=== PATIENT | male | born 1995 | race Caucasian/White ===

== ENCOUNTER 2018-07-07 10:09 | Emergency (ER) | payer OTHER | END 2018-07-07 10:57 | disposition home or self-care (01) | LOC: M ED 10:09 | DX: M62.830 Muscle spasm of back (principal) | CPT/HCPCS: 99282 ==

== ENCOUNTER 2019-12-08 09:20 | Day surgery (SDC) | payer OTHER, SELFPAY ==
[~2019-12-08] VITALS: Ht 175.3 cm; Wt 87.7 kg
[2019-12-08] VITALS (8 sets, daily range): BP systolic 130–154; BP diastolic 65–92
[~2019-12-08 09:20] MED LIST: IBUP-1022 PO; ROBA500T PO
[2019-12-08] MEDS ORDERED: LR 1,000 ML IV SCH ×2 (10:08→14:15)
[2019-12-08] MEDS ORDERED: MORPHINE 2 MG/ML 1ML VIAL (J2270) IV PRN (10:15)
[2019-12-08] MEDS ORDERED: ONDANSETRON 4MG/2ML VIAL IV PRN ×2 (10:15→14:15)
[2019-12-08] MEDS ORDERED: ACETAMINOPHEN TAB 650MG DOSE (2X325MG) PO PRN (10:15)
[2019-12-08] MEDS ORDERED: PERCOCET 5MG/325MG TAB PO PRN ×2 (10:15→14:15)
--- NOTE | 2019-12-08 10:25 | HPEPDOC ---
General Surgery H&P Date of Admission December 08, 2019 Attending Physician: LUIS OSUNA MD History and Physical CHIEF COMPLAINT: abdominal pain HISTORY OF PRESENT ILLNESS: Patient is a healthy 24 M transferred from [facility] ED with complaints of overnight history of abdominal pain. This started about 9 pm last night. Pain is located over the right side of the abdomen, epigastric and right upper quadrant area right lower quadrant area. He describes this as initially vague but that about 1 AM started becoming sharp and constant. He tried TUMS without effect. Denies nausea, vomiting, diarrhea, fevers or chills. Reports sharp, almost constant pain. Denies any significant outside travel or sick contacts. He denies any cough or colds, shortness of breath. He reports roughly about 2 years ago had almost similar symptoms and was in the emergency department was told he had some gastritis. ALLERGIES: Please see below. HOME MEDICATIONS: Please see below. PAST MEDICAL HISTORY: 1. Gastroesophageal Reflux Disease PAST SURGICAL HISTORY: 1 left knee arthroscopy PERSONAL/SOCIAL HISTORY: [Denies smoking quit 2 yrs ago, occasional alcohol use, denies recreational drug use]. REVIEW OF SYSTEMS: GENERAL: [Denies chills, fatigue, fever, weight gain and weight loss]. HEENT: Denies vision problems, hearing problems. NECK: [Denies any neck pain]. CARDIOVASCULAR: [Denies chest pain and palpitations]. MUSCULOSKELETAL: Had left knee arthroscopy, reports occasional back pain. SKIN: [Denies rash]. NEUROLOGIC: [Denies headache, stroke and transient ischemic attack]. PSYCHIATRIC: [Denies anxiety and depression]. ENDOCRINE: [Denies thyroid disease]. No personal history for diabetes HEMATOLOGY/ONCOLOGY: [Denies any bleeding or clotting disorder]. HEART: [Denies any chest pains, palpitations, paroxysmal dyspnea, orthopnea]. PULMONARY: [Denies chronic cough, dyspnea and wheezing]. GASTROINTESTINAL: See HPI. GENITOURINARY: [Denies dysuria, frequency, hematuria and nocturia]. ENDOCRINE: [Denies polydipsia, polyphagia, polyuria, heat or cold intolerance]. INFECTIOUS: [Denies any recent upper respiratory tract infection, UTI, need for use of antibiotics]. NUTRITION: Reports fair to poor appetite since his symptoms began. PHYSICAL EXAMINATION: VITAL SIGNS: Please see below. GENERAL APPEARANCE: [Patient seen at bedside, appears mildly comfortable]. [Awake, alert, oriented]. HEENT: [Normocephalic, atraumatic. [place] palpebral conjunctivae. Anicteric sclera e. Lips moist]. CHEST: [No chest wall abnormalities. Normal respiratory motion/effort]. NECK: [Supple. No thyromegaly. No lymphadenopathies]. LUNGS: [Lung sounds are clear to auscultation bilaterally. No wheezing appreciated]. HEART: [No chest wall abnormalities. Heart rate and rhythm are regular with no murmurs]. ABDOMEN: Relatively flat abdomen, soft. Tender on palpation right just above the umbilicus also at the suprapubic area and right lower quadrant area with mild guarding. SKIN: [Warm, moist]. EXTREMITIES: [Extremities have no deformities. No edema identified]. NEUROLOGICAL: Awake, alert and oriented. ANCILLARIES: . LABORATORY DATA: Please see below. (done at [facility]) U/A normal CMP normal CBC: WBC 13.5 Hgb 16.8/Hct. 45.2 Plt 247 MICROBIOLOGY: Please see below. IMAGING: CT abdomen and pelvis (performed at [facility])\distended appendix up to 1.3 cms associated with the wall hperenhancement and peripheral fat stranding. No perforation, free air IMPRESSION AND PLAN: Acute Appendicitis with localized peritonitis Patient has been transferred to our care after presenting at [facility] with symptoms consistent with acute appendicitis as well as imaging done in the emergency room showing a dilated appendix with periapical initial fat stranding. He does have evidence for localized peritonitis. Patient has been given a dose of zosyn 3.375 gm/IV at about 7:38 am today. Will keep him on unasyn 3 gm IV while awaiting availability of the OR. I advised the patient need for surgery, details of the procedure (Laparoscopic appendectomy), risks and benefits. This includes risk for anesthesia, risks of bleeding, infection, subsequent abscess formation, injury to nearby bowels or blood vessels. Patient has consented to the procedure. Vital Signs BP 144/92 Temperature 90.9 Pulse rate 102 Respiratory rate 16 Pulse oximetry 96% at room air Home Medications Scheduled PRN Ibuprofen (Ibuprofen) 600 Mg Tab, 600 MG PO Q6H PRN for PAIN Methocarbamol (Robaxin) 500 Mg Tab, 2 TAB PO Q6H PRN for PAIN Allergies Coded Allergies: No Known Allergies (Unverified , 01/29/14) A-FIB/CHADSVASC A-FIB History Current/History of A-Fib/PAF?: No Current PO Anticoag Therapy: No LUIS OSUNA MD December 08, 2019 10:25
[2019-12-08] MEDS ORDERED: AMPICILLIN SOD/SULBACTAM SOD 3 GM in D5W MINI-BAG PLUS 100 ML IV SCH (11:00)
[2019-12-08] MEDS: PANTOPRAZOLE 40MG VIAL (C9113 PER 1) IV SCH (11:31)
[2019-12-08] MEDS ORDERED: ROCURONIUM BROMIDE 50 MG/5 ML VIAL As Ordered ONE (12:27)
[2019-12-08] MEDS ORDERED: fentaNYL 250 MCG/5 ML INJECTION (J3010) As Ordered ONE (12:27)
[2019-12-08] MEDS ORDERED: propofoL 200 MG/20 ML VIAL As Ordered ONE (12:27)
[2019-12-08] MEDS ORDERED: MIDAZOLAM INJ 2MG/2ML VIAL (J2250 PER 1MG) As Ordered ONE (12:27)
[2019-12-08] MEDS ORDERED: LIDOCAINE 2% 100MG/5ML SDV (FOR ANES.) As Ordered ONE (12:27)
[2019-12-08] MEDS ORDERED: LIDOCAINE 1% SDV 30ML VIAL As Ordered ONE (12:37)
[2019-12-08] MEDS ORDERED: BUPIVACAINE HCL 0.25% 30ML VIAL As Ordered ONE (12:37)
[2019-12-08] MEDS ORDERED: UNASYN 1.5 GM VIAL As Ordered ONE (12:40)
[2019-12-08] MEDS ORDERED: SUCCINYLCHOLINE 100 MG/5 ML SYRINGE (J0330) As Ordered ONE (13:18)
[2019-12-08] MEDS ORDERED: ONDANSETRON 4MG/2ML VIAL As Ordered ONE (13:33)
[2019-12-08] MEDS ORDERED: KETOROLAC 60 MG/2 ML VIAL As Ordered ONE (13:33)
[2019-12-08] MEDS ORDERED: dexameTHASONE 4 MG/ML 1ML VIAL (J1100 PER 1MG) As Ordered ONE ×2 (13:33→13:34)
[2019-12-08] MEDS ORDERED: METOCLOPRAMIDE INJ 10MG/2ML VIAL (J2765 PER 1) As Ordered ONE (13:34)
[2019-12-08] MEDS ORDERED: ACETAMINOPHEN 1000MG 100ML IV BTL (OFIRMEV) (J0131 PER 10MG) As Ordered ONE (13:35)
[2019-12-08] MEDS ORDERED: SUGAMMADEX SODIUM 500 MG/5 ML VIAL (BRIDION) As Ordered ONE (13:39)
--- NOTE | 2019-12-08 14:10 | ROOPDOC ---
[facility] Report Of Operation Report of Operation DATE OF PROCEDURE: 12/08/19 PREPROCEDURE DIAGNOSES: Acute Appendicitis. POSTPROCEDURE DIAGNOSES: Acute Appendicitis. PROCEDURE: Laparoscopic Appendectomy. SURGEON: Damon Marroquin MD [employer] SUPERVISOR: ANESTHESIA: General Anesthesia. ESTIMATED BLOOD LOSS: Approximately 20 mL. COMPLICATIONS: none. REMARKS: healthy 24 M with one day history of abdominal pain found to have enlarged and inflamed appendix on CT, WBC 13,000. PROCEDURE NOTE: inflamed and mildly enlarged appendix along its course, exudates covering appendix and mesoappendix, no perforation, no free fluid collection. Mildly thickened mesoappendix, healthy base. DESCRIPTION OF PROCEDURE: Patient has been given a dose of Unasyn 3 g IV perioperatively. Patient was brought to the operating room, placed supine on the table. Sequential compressi on device placed for DVT prophylaxis. General endotracheal anesthesia started. The abdomen prepped and draped in usual sterile fashion. After a surgical timeout, we began our surgery Entry into the abdomen done through an incision just above the umbilicus. Veress needle inserted on a controlled fashion. Intra-abdominal placement confirmed with saline drop technique. CO2 insufflation started to a pressure of 15 mmHg. Using the same incision a 5 mm optical port was placed under direct vision of laparoscope. Insertion site was inspected for injury and none was found. He was placed on a Trendelenburg position the right side tilted to about 30 to allow for better visualization of the appendix. A 5 mm port was placed under direct vision at the suprapubic area. The umbilical port was exchanged for an 8 mm port. Another 5 mm port was placed over the left lower quadrant area. Operative findings: Markedly inflamed and thickened appendix as well as the mesoappendix with exudates on the wall of the appendix is noted the patient is relatively healthy and thickened. There is some mild distention just distal to the base. No obvious perforation. Small amount of serous fluid at the right gutter noted. The appendix was located. The Surrounding bowels retracted away from the appendix. This was grasped to pull the base of the appendix into view. The mesoappendix was divided using Harmonic scalpel down to the base. The fibrous adhesion, attachments to the lateral wall of the cecum was likewise sharply divided The base still appears distended and thickened. The terminal ileum was slightly adhered to the pelvic sidewall which was likewise dissected to further bring the base of the appendix into view. Two PDS Endoloops were placed to ligate the appendix at its base then divided with a Harmonic Scalpel then the stump was cauterized. Stump appears healthy. Appendix was then delivered into an Endo Catch bag and retrieved through the umbilical port site. After re- insufflation the surgical site was inspected for hemostasis. Surrounding areas of the abdomen including the pelvis and perihepatic area were inspected for fluid collections or signs of injury. The abdomen was deflated. All ports removed. The umbilical fascial defect repaired with 0 Vicryl in a mattress fashion. All skin incisions closed with 4-0 Monocryl in a subcuticular fashion. Steri-Strips and gauze dressings in place. Patient was informed they awakened, extubated and brought to recovery room in stable condition. DAMON MARROQUIN MD December 08, 2019 14:10
[2019-12-08] MEDS ORDERED: fentaNYL 100 MCG/2 ML INJECTION (J3010) IV PRN (14:15)
[2019-12-08] MEDS ORDERED: METOCLOPRAMIDE INJ 10MG/2ML VIAL (J2765 PER 1) IV PRN (14:15)
[2019-12-08 16:21] LABS: BLOOD UREA NITROGEN 10 MG/DL (7-18); CALCIUM LEVEL 8.9 MG/DL (8.5-10.1); CARBON DIOXIDE LEVEL 26 MEQ/L (21-32); CHLORIDE LEVEL 105 MEQ/L (98-107); CREATININE FOR GFR 0.92 MG/DL (0.70-1.30); GLOMERULAR FILTRATION RATE > 60.0 (>60); GLUCOSE, FASTING 149 MG/DL (70-100); POTASSIUM SERUM 3.8 MEQ/L (3.5-5.1); SODIUM LEVEL 137 MEQ/L (136-145)
[2019-12-08] MEDS: AMPICILLIN SOD/SULBACTAM SOD 3 GM in D5W MINI-BAG PLUS 100 ML IV SCH (19:29)
[2019-12-08] MEDS: SENOKOT S TAB PO SCH (20:19)
[2019-12-09] VITALS: BP 127/65
[2019-12-09] MEDS: AMPICILLIN SOD/SULBACTAM SOD 3 GM in D5W MINI-BAG PLUS 100 ML IV SCH ×2 (01:22→06:14)
[2019-12-09 06:00] VITALS: BP 133/68
[2019-12-09 06:53] LABS: BASO % 0.1 % (0.0-1.0); EOS % 0.1 % (0.0-3.0); HEMATOCRIT 41.6 % (42.0-52.0); HEMOGLOBIN 14.7 g/dl (13.5-17.5); LYMPH % 7.2 % (24.0-44.0); MEAN CORPUSCULAR HEMOGLOBIN 31.2 pg (27.0-33.0); MEAN CORPUSCULAR HGB CONC 35.3 g/dl (32.0-36.5); MEAN CORPUSCULAR VOLUME 88.3 fl (80.0-96.0); MONO # 0.8 10^3/uL (0.0-0.8); MONO % 6.1 % (0.0-5.0); NEUTROPHILS # 11.5 10^3/uL (1.5-8.5); PLATELET COUNT, AUTOMATED 248 10^3/uL (150-450); RED BLOOD COUNT 4.71 10^6/uL (4.30-6.10); WHITE BLOOD COUNT 13.4 10^3/uL (4.0-10.0)
[2019-12-09] MEDS: PANTOPRAZOLE 40MG VIAL (C9113 PER 1) IV SCH (08:33)
[2019-12-09] MEDS: SENOKOT S TAB PO SCH (08:33)
[2019-12-09 10:00] VITALS: BP 135/69
[2019-12-09] MEDS ORDERED: AUGM875T28 PO (10:24)
== END 2019-12-09 11:57 | disposition home or self-care (01) ==
LOC: M SDC 09:20 → M MSPAV 09:20 → EDSTATUS 10:19 → M SDC 10:20
PROVIDERS: ATTEND Surgery
DX: K35.890 Other acute appendicitis without perforation or gangrene (principal); K21.9 Gastro-esophageal reflux disease without esophagitis; Z87.891 Personal history of nicotine dependence; Z11.59 Encounter for screening for other viral diseases
CPT/HCPCS: 36415; 44970; 80048; 85025; 88304; 96365; 96366; 96375; 96376; C9113; J0131; J0330; J1100; J1885; J2250; J2405; J2765; J3010; U0002